=== PATIENT | male | born 1950 | race Caucasian/White ===

== ENCOUNTER 2022-01-03 22:25 | Emergency (ER) | payer BC, MEDICARE ==
[~2022-01-03] VITALS: Ht 177.8 cm; Wt 75.7 kg
--- NOTE | 2022-01-03 22:30 | NUR ---
PT AMBULATED TO ER C/O NAUSEA AND DIARRHEA FOR A COUPLE OF MONTHS HAS HX OF PANCREATIC MASS AND WAITING ON DX FROM HIS PRIMARY MD. NO SOB OR LABORED BREATHING. DENIES CP/PRESSURE. CLEAR SPEECH, COMPLETE SENTENCES. SIGNIFICANT OTHER AT BEDSIDE.
--- NOTE | 2022-01-03 22:40 | NUR ---
Oscar RODRIGUEZ AT BEDSIDE, MSE IN PROGRESS.
[2022-01-03] MEDS ORDERED: ONDANSETRON 4 MG/2 ML VIAL IV ONE (23:00)
[2022-01-03] MEDS ORDERED: IV NORMAL SALINE 1000 ML BAG IV ONE (23:00)
[2022-01-03 23:19] LABS: HEMATOCRIT 30.1 % (36.7-47.1); MEAN CORPUSCULAR HEMOGLOBIN 31.9 uug (23.8-33.4); MEAN CORPUSCULAR VOLUME 96.5 fL (73.0-96.2); PLATELET COUNT (AUTO) 403 K/uL (152-348)
[2022-01-03 23:22] LABS: CREATININE 1.2 mg/dL (0.6-1.3); POTASSIUM 4.8 mmol/L (3.5-5.1)
[2022-01-03] MEDS ORDERED: ONDANSETRON 4 MG/2 ML VIAL ONE (23:23)
[2022-01-03 23:34] LABS: BILIRUBIN,DIRECT 0.4 mg/dL (0.0-0.2); BILIRUBIN,TOTAL 1.6 mg/dL (0.2-1.0); TOTAL PROTEIN, SERUM 6.7 g/dL (6.4-8.2)
[2022-01-03] MEDS ORDERED: ONDA4TAB5 PO (23:47)
--- NOTE | 2022-01-03 23:57 | NUR ---
Patient discharged to home in stable condition. Written and verbal after care instructions given. Patient verbalizes understanding of instructions. Stressed follow up or return to ER for worsening s/s. Steady gait, no SOB or labored breathing, afebrile. No changes in LOC. Denies PEACE/dizzyness. Accompanied by .
[2022-01-04] VITALS: BP 130/70
== END 2022-01-04 | disposition home or self-care (01) ==
LOC: ER 22:30
DX: R19.7 Diarrhea, unspecified (principal); R11.0 Nausea; I48.91 Unspecified atrial fibrillation; K86.9 Disease of pancreas, unspecified; G89.29 Other chronic pain
CPT/HCPCS: 36415; 80048; 80076; 83690; 85025; 96374; 99284; J2405; A4663